=== PATIENT | female | born 1955 | race Caucasian/White ===

== ENCOUNTER → 2019-11-04 21:19 | Outpatient (CLI) | payer BC, SELFPAY ==
[2019-11-04 16:18] VITALS: BMI 26.6
[2019-11-04 21:56] LABS: CPK Total, Creatine Kinase 101 U/L (26-192)
== END ==
PROVIDERS: Referring Provider Nurse Practitioner; Visit Provider Nurse Practitioner
DX: M94.0 Chondrocostal junction syndrome [Tietze] (principal); R07.9 Chest pain, unspecified
CPT/HCPCS: 82550; 84443; 84484